=== PATIENT | female | born 1990 | race Two or more races ===

== ENCOUNTER → 2019-03-19 | Day surgery (SDC) | payer BC ==
[~2019-03-19] MED LIST: CITA20TA6 PO; LIDOCAINE 1%/EPI 1:100,000 20 ML VIAL. INJ ONE; PNV1TABL25 PO
[2019-03-19 10:37] VITALS: BP 107/63
--- NOTE | 2019-03-19 11:26 | PDOC4 ---
Operative Note Operative Note Date: 03/19/2019 Preoperative diagnosis: Lipoma right thigh Postoperative diagnosis: Same Procedure: Excision of lipoma Surgeon: Bird Specimen: Right thigh lipoma Dictation: Patient is a 29-year-old female is complained of enlarging mass in her right medial thigh. Procedure of excision of mass was explained to the patie nt in detail risks benefits were also discussed including bleeding infection alternatives to this procedure also discussed with the patient seemed to understand and gave both verbal and written consent had the procedure performed. Patient was taken to the minor his room placed in the supine position the area over the mass was prepped and draped usual sterile fashion with ChloraPrep and area around the base the mass was injected with 1% lidocaine with epinephrine elliptical incision at the base mass was made with 15 blade scalpel and the mass was sharply excised. The incision was then closed with a running 4-0 Monocryl subcuticular stitch Mastisol Steri-Strips and island dressing were applied. Patient tolerated procedure well was discharged home in stable condition to follow up in 2 weeks for wound check. Estimated blood loss less than 5 mL ANA JACKSON MD Mar 19, 2019 11:26
--- NOTE | 2019-03-19 11:27 | DISCH ---
DISCHARGE INSTRUCTIONS Condition on Discharge Condition on Discharge: Stable Activity After Discharge Activity Instructions for Disc: Activity as tolerated Diet after Discharge Diet after Discharge: Regular Wound Incision Care Other wound/incision instructi: May shower in 24 hours Contacting the after DC Call your doctor for: If your condition worsens Follow-Up Follow up with: Dr. Jackson in 2 weeks ANA JACKSON MD Mar 19, 2019 11:27
--- NOTE | 2019-03-21 08:07 | PATHOLOGY ---
[facility] Accession Number: [id number] . 01 Material submitted: . thigh - RIGHT THIGH LIPOMA. Modifiers: right . 01 Clinical history: . Right thigh lipoma . 02 Diagnosis: Skin and subcutaneous tissue, right thigh lesion excision: - Lipoma, with focal cystic fat necrosis. 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 02 Comment: There is no evidence of malignancy. 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 02 Electronically signed: . Luis Eduardo Gardiner MD, Pathologist NPI- [id number] . 01 Gross description: . Received in formalin labeled "Brennan Meyers, right thigh lipoma," a nodular segment of pink-bowling tissue, measuring 3.1 x 2.0 x 1.2 cm with underlying yellow adipose tissue measuring 3.0 x 2.1 x 1.6 cm. The margin is inked and the specimen is serially sectioned, revealing bright yellow cut surfaces. [employer] Supervisor tissue submitted in cassette A1. (TSD; 03/19/2019) TOB/TOB 03/19/2019 1727 Local . 02 Pathologist provided ICD-10: D17.23 . 02 CPT . 399550 Specimen Comment: A courtesy copy of this report has been sent to Specimen Comment: [phone], , . Specimen Comment: Report sent to ,DR MONTESINOS / DR VILLANUEVA Performed at: 01 [facility] [address] [facility] [address], [place], [place] [id number] MD Fish Duenas MD Phone: [phone] Performed at: 02 [facility] [address] [place], [place] [id number] MD Luis Eduardo Gardiner MD Phone: [phone]
== END ==
LOC: SURG 10:28
PROVIDERS: ATTEND Surgery
DX: D17.23 Benign lipomatous neoplasm of skin and subcutaneous tissue of right leg (principal); G43.909 Migraine, unspecified, not intractable, without status migrainosus; F41.9 Anxiety disorder, unspecified; F32.9 Major depressive disorder, single episode, unspecified; Z98.890 Other specified postprocedural states; Z72.89 Other problems related to lifestyle
CPT/HCPCS: 27337; J3490; 88304